=== PATIENT | female | born 1995 | race Caucasian/White ===

== ENCOUNTER → 2019-10-05 | Outpatient (CLI) | payer OTHER ==
[~2019-10-05] MED LIST: PROHANCE 279.3MG/ML 15ML VIAL (A9576) As Ordered ONE; PROHANCE 279.3MG/ML 5ML VIAL (A9576) As Ordered ONE
--- NOTE | 2019-10-06 08:38 | REP ---
MR VENOGRAPHY: Without and with IV contrast. HISTORY: Papilledema associated with increased intracranial pressure. GADOLINIUM ENHANCEMENT DOSE: 20 mL of intravenous ProHance. TECHNIQUE: 3D MR venography is acquired. Source images are reviewed. Maximal intensity projection images are generated and reviewed in rotation, spin and tumble format. FINDINGS: The medial, horizontal portions of the sigmoid sinuses are relatively thin bilaterally but patent. The sinuses are otherwise symmetric and normal in size and patent. Internal jugular veins are symmetric and unremarkable. The sagittal sinus is patent. The draining cortical veins and the internal cerebral vein and straight sinus are patent. No significant arterial abnormality is appreciated. IMPRESSION: Bilateral and symmetrically somewhat thin medial sigmoid sinus caliber bilaterally. No filling defect is seen. Likely developmental variant. Otherwise negative MR venography. Electronically Signed by Benitez Prabhakar MD 10/06/2019 09:34 A
--- NOTE | 2019-10-06 08:40 | REP ---
MRI brain without and with IV contrast: History: Papilledema with increased intracranial pressure. Comparison study: No comparison brain imaging. Technique: Axial and sagittal imaging planes are utilized for T1 and T2-weighted scans. Sequences include spin-echo, fast spin echo, FLAIR, and diffusion weighted sequences. Gadolinium enhancement dose 20 ml of intravenous ProHance. MRI findings: No bony calvarial lesion is seen. Craniocervical junction and upper cervical cord are normal in appearance. There is no MR evidence of significant paranasal sinus disease. No intraorbital abnormality is seen. The lateral, third, and fourth ventricles are normal in size and position. Jerez-white differentiation pattern is intact above and below the tentorium. There is no evidence of intracranial hemorrhage. No mass, infarction, extra-axial fluid collection or midline shift is seen. No abnormal white matter lesion is seen. Postcontrast imaging shows no evidence of normal intracranial contrast enhancement. Enhancement is seen in normal vasculature. Impression: Negative brain MRI study, without and with intravenous contrast . Electronically Signed by Benitez Prabhakar MD 10/06/2019 08:31 A
--- NOTE | 2019-10-06 08:49 | REP ---
ORBITAL MRI STUDY WITHOUT AND WITH IV CONTRAST: HISTORY: Papilledema associated with increased intracranial pressure. Optic nerve swelling. No comparison imaging. Gadolinium enhancement dose is 20 mL of intravenous ProHance. MRI FINDINGS: Optic nerves are normal and symmetric in size. No intraconal or extraconal orbital mass lesion is seen. No ocular globe abnormality is appreciated. The extraocular musculature appears normal. Postcontrast images show no evidence of abnormal contrast enhancement. The optic chiasm and suprasellar cistern are unremarkable. No evidence of pituitary or parasellar mass. There is no evidence of paranasal sinus disease. IMPRESSION: Normal orbital MRI study without and with IV contrast. Electronically Signed by Benitez Prabhakar MD 10/06/2019 09:34 A
== END ==
LOC: M RAD 15:26
PROVIDERS: ATTEND Ophthalmology Retina Specialist
DX: H47.11 Papilledema associated with increased intracranial pressure (principal)
CPT/HCPCS: 70543; 70546; 70553; A9576